=== PATIENT | female | born 1985 | race Caucasian/White ===

== ENCOUNTER 2018-01-27 17:06 | Emergency (ER) | payer SELFPAY ==
[2018-01-27] MEDS ORDERED: PROCHLORPERAZINE EDISYLATE INJ 10 MG/2 ML VIAL IV ONE (17:57)
[2018-01-27] MEDS ORDERED: DICYCLOMINE HCL INJ 20 MG/2 ML AMPULE IM ONE (17:57)
[2018-01-27] MEDS ORDERED: FAMOTIDINE INJ/PF 20 MG/2 ML SDV IV ONE (17:58)
--- NOTE | 2018-01-27 17:59 | ER Document Report ---
ED Medical Screen (RME) - General Chief Complaint: Abdominal Pain Stated Complaint: ABDOMINAL PAIN Time Seen by Provider: 01/27/18 17:57 TRAVEL OUTSIDE OF THE [place] IN LAST 30 DAYS: No - HPI Notes: 01/27/18 17:58 Patient coming in for upper abdominal pain nausea vomiting/diarrhea states nausea vomiting that occurred today the symptoms ongoing for the last 2 3 days mostly now having epigastric abdominal pain. - Related Data Allergies/Adverse Reactions: Penicillins Allergy (Verified 01/27/18 17:37) Past Medical History - Social History Frequency of alcohol use: None Drug Abuse: Marijuana - Past Medical History Cardiac Medical History: Reports: Hx Heart Attack - x2 in 2009, eating disorder Renal/ Medical History: Denies: Hx Peritoneal Dialysis Past Surgical History: Reports: Hx Gynecologic Surgery - preg. termination Review of Systems - Review of Systems Gastrointestinal: Abdominal pain Physical Exam - Vital signs Vitals: Temp Pulse Resp BP Pulse Ox 99.1 F 108 H 16 96/67 L 99 01/27/18 17:27 01/27/18 17:27 01/27/18 17:27 01/27/18 17:27 01/27/18 17:27 - Respiratory Respiratory status: No respiratory distress Chest status: Nontender Breath sounds: Normal Chest palpation: Normal Course - Vital Signs Vital signs: Temp Pulse Resp BP Pulse Ox 99.1 F 108 H 16 96/67 L 99 01/27/18 17:27 01/27/18 17:27 01/27/18 17:27 01/27/18 17:27 01/27/18 17:27
[2018-01-27] MEDS: NORMAL SALINE 1000 ML 1,000 ML IV PRN ×2 (18:10→21:00)
[2018-01-27 18:35] LABS: ABSOLUTE BASOPHILS # (AUTO) 0.1 10^3/uL (0.0-0.2); ABSOLUTE LYMPHOCYTES (AUTO) 4.5 10^3/uL (0.5-4.7); ABSOLUTE MONOCYTES (AUTO) 0.7 10^3/uL (0.1-1.4); ABSOLUTE NEUT (AUTO) 7.1 10^3/uL (1.7-8.2); BASOPHILS % (AUTO) 1.1 % (0-2); EOSINOPHILS % (AUTO) 0.2 % (0-6); HEMATOCRIT 45.6 % (36.0-47.0); HEMOGLOBIN 15.8 g/dL (12.0-15.5); LYMPHOCYTES % (AUTO) 35.9 % (13-45); MEAN CORPUSCULAR HEMOGLOBIN 32.4 pg (27.0-33.4); MEAN CORPUSCULAR HGB CONC 34.7 g/dL (32.0-36.0); MEAN CORPUSCULAR VOLUME 93 fl (80-97); MONOCYTES % (AUTO) 5.9 % (3-13); PLATELET COUNT 323 10^3/uL (150-450); RED BLOOD COUNT 4.88 10^6/uL (3.72-5.28); RED CELL DISTRIBUTION WIDTH 13.9 % (11.5-14.0); SEGMENTED NEUTROPHILS % (AUTO) 56.9 % (42-78); TOTAL CELLS COUNTED % (AUTO) 100 %; WHITE BLOOD COUNT 12.5 10^3/uL (4.0-10.5)
--- NOTE | 2018-01-27 18:59 | ER Document Report ---
ED General - General Mode of Arrival: Ambulatory Information source: Patient TRAVEL OUTSIDE OF THE [place] IN LAST 30 DAYS: No <ANIRUDH LACKEY - Last Filed: 01/27/18 21:32> <BRAVO MCKINLEY - Last Filed: 01/28/18 02:38> - General Chief Complaint: Abdominal Pain Stated Complaint: ABDOMINAL PAIN Time Seen by Provider: 01/27/18 17:57 Notes: 32 y.o. female presents to the ED with N/V/D and complains of upper abdominal pain. Pt reports that her abd pain began 2-3 days ago but her onset of nausea and vomiting was today and states that she only had one episode of diarrhea early this morning. Pt denies being around people of similar sx, or eating anything that could have caused her sx. She denies any chance of . ( ANIRUDH LACKEY) - Related Data Allergies/Adverse Reactions: Penicillins Allergy (Verified 01/27/18 17:37) Past Medical History - General Information source: Patient - Social History Smoking Status: Current Every Day Smoker Frequency of alcohol use: None Drug Abuse: Marijuana Family History: Arthritis, CAD, CVA, DM, Hyperlipidemia, Hypertension, Malignancy Patient has suicidal ideation: No Patient has homicidal ideation: No - Past Medical History Cardiac Medical History: Reports: Hx Heart Attack - x2 in 2009, eating disorder Renal/ Medical History: Denies: Hx Peritoneal Dialysis Past Surgical History: Reports: Hx Gynecologic Surgery - preg. termination <ANIRUDH LACKEY - Last Filed: 01/27/18 21:32> Review of Systems - Review of Systems Constitutional: No symptoms reported EENT: No symptoms reported Cardiovascular: No symptoms reported Respiratory: No symptoms reported Gastrointestinal: See HPI, Abdominal pain, Diarrhea, Nausea, Vomiting Genitourinary: No symptoms reported Female Genitourinary: No symptoms reported Musculoskeletal: No symptoms reported Skin: No symptoms reported Hematologic/Lymphatic: No symptoms reported Neurological/Psychological: No symptoms reported -: Yes All other systems reviewed and negative <ANIRUDH LACKEY - Last Filed: 01/27/18 21:32> Physical Exam <ANIRUDH LCAKEY - Last Filed: 01/27/18 21:32> <BRAVO MCKINLEY - Last Filed: 01/28/18 02:38> - Vital signs Vitals: Temp Pulse Resp BP Pulse Ox 99.1 F 108 H 16 96/67 L 99 01/27/18 17:27 01/27/18 17:27 01/27/18 17:27 01/27/18 17:27 01/27/18 17:27 - Notes Notes: Physical Exam: General: Alert, no acute distress. Appears uncomfortable. HEENT: Normocephalic. Atraumatic. PERRL. Extraocular movements intact. Dry mucous membranes. Neck: Supple. Non-tender. Respiratory: No respiratory distress. Clear and equal breath sounds bilaterally. Cardiovascular: Regular rate and rhythm. Abdominal: Epigastric and RUQ tenderness to palpation. No distension. No guarding or rebound. Normal Bowel Sounds. Back: Non-tender. No deformity or step off. Extremities: Moves all four extremities. Upper extremities: Normal inspection. Normal ROM. Lower extremities: Normal inspection. No edema. Normal ROM. Neurological: Normal cognition. AAOx3. Normal speech. Psychological: Normal affect. Normal Mood. Skin: Warm. Dry. Normal color. (ANIRUDH LACKEY) Course - Laboratory Result Diagrams: 01/27/18 18:03 01/27/18 18:03 <ANIRUDH LACKEY - Last Filed: 01/27/18 21:32> - Laboratory Result Diagrams: 01/27/18 18:03 01/27/18 18:03 - Diagnostic Test Radiology reviewed: Reports reviewed <BRAVO MCKINLEY - Last Filed: 01/28/18 02:38> - Re-evaluation Re-evalutation: 01/27/18 21:34 Updated patient. She denies any pain and would like something to eat and drink. (ANIRUDH LACKEY) Patient tolerating p.o. without difficulty. No further abdominal pain. Ultrasound within normal limits. Slightly elevated lipase which could be reactive from gastroenteritis or due to pancreatitis which the patient has never had before. She is to avoid drinking alcohol. She will be discharged home with medication for pain and nausea as needed. Return if any worsening or concerning symptoms. Patient is agreeable to this plan. Stable for discharge. (BRAVO MCKINLEY) - Vital Signs Vital signs: Temp Pulse Resp BP Pulse Ox 99.3 F 60 18 98/49 L 97 01/27/18 22:59 01/27/18 22:59 01/27/18 22:59 01/27/18 22:59 01/27/18 22:59 - Laboratory Laboratory results interpreted by me: 01/27/18 01/27/18 01/27/18 18:03 18:03 18:03 WBC 12.5 H Hgb 15.8 H Chloride 94 L Carbon Dioxide 33 H Calcium 11.0 H AST 47 H ALT 70 H Total Protein 8.7 H Albumin 5.3 H Lipase 558.8 H Urine Ketones 20 H Urine Urobilinogen 4.0 H Urine Ascorbic Acid 40 H Discharge <ANIRUDH LACKEY - Last Filed: 01/27/18 21:32> <BRAVO MCKINLEY - Last Filed: 01/28/18 02:38> - Discharge Clinical Impression: Abdominal pain Qualifiers: Abdominal location: epigastric Qualified Code(s): R10.13 - Epigastric pain Vomiting Qualifiers: Vomiting type: unspecified Vomiting Intractability: unspecified Nausea presence : with nausea Qualified Code(s): R11.2 - Nausea with vomiting, unspecified Condition: Stable Disposition: HOME, SELF-CARE Instructions: Abdominal Pain ([facility]), Gastritis ([facility]), Vomiting ([facility]) Prescriptions: Dicyclomine HCl [Bentyl 20 mg Tablet] 20 mg PO TIDP PRN #40 tablet PRN Reason: Metoclopramide HCl [Reglan 10 mg Tablet] 1 tab PO ASDIR PRN #25 tablet PRN Reason: Forms: Smoking Cessation Education Scribe Attestation: 01/28/18 02:38 I personally performed the services described in the documentation, reviewed and edited the documentation which was dictated to the scribe in my presence, and it accurately records my words and actions. (BRAVO MCKINLEY) Scribe Documentation - Scribe Written by Brnaden:: Branden Brunson 01/27/18 1909 acting as scribe for :: Steffi <ANIRUDH LACKEY - Last Filed: 01/27/18 21:32>
[2018-01-27 19:13] LABS: ALANINE AMINOTRANSFERASE 70 U/L (9-52); ALBUMIN 5.3 g/dL (3.5-5.0); ALKALINE PHOSPHATASE 50 U/L (38-126); ANION GAP 16 (5-19); ASPARTATE AMINO TRANSFERASE 47 U/L (14-36); BILIRUBIN,DIRECT 0.4 mg/dL (0.0-0.4); BILIRUBIN,TOTAL 0.6 mg/dL (0.2-1.3); BLOOD UREA NITROGEN 8 mg/dL (7-20); CARBON DIOXIDE 33 mmol/L (22-30); CHLORIDE 94 mmol/L (98-107); GLUCOSE 107 mg/dL (75-110); LIPASE 558.8 U/L (23-300); POTASSIUM 4.1 mmol/L (3.6-5.0); SODIUM 142.6 mmol/L (137-145); TOTAL PROTEIN 8.7 g/dL (6.3-8.2)
--- NOTE | 2018-01-27 21:09 | RADIOLOGY REPORT (SQ) ---
EXAM DESCRIPTION: U/S ABDOMEN LIMITED W/O DOP COMPLETED DATE/TIME: 01/27/2018 8:59 pm REASON FOR STUDY: Abd pain, N/V COMPARISON: None. TECHNIQUE: Dynamic and static grayscale images acquired of the abdomen and recorded on PACS. Additio nal selected color Doppler and spectral images recorded. LIMITATIONS: None. FINDINGS: PANCREAS: No masses. Visualized pancreatic duct normal caliber. LIVER: 15.4 cm. Normal echotexture. LIVER VASCULATURE: Normal directional flow of the main portal vein and hepatic veins. GALLBLADDER: No stones. Normal wall thickness. No pericholecystic fluid. ULTRASOUND-DETECTED CASTANEDA'S SIGN: Negative. INTRAHEPATIC DUCTS AND COMMON DUCT: CBD and intrahepatic ducts normal caliber. No filling defects. INFERIOR VENA CAVA: Patent. AORTA: No aneurysm. RIGHT KIDNEY: Normal size, 9.6 cm. Normal echogenicity. No solid or suspicious masses. No hydronephr osis. No calcifications. PERITONEAL AND RIGHT PLEURAL SPACE: No ascites or effusions. OTHER: No other significant findings. IMPRESSION: NORMAL RIGHT UPPER QUADRANT ULTRASOUND. TECHNICAL DOCUMENTATION: JOB ID: [id number] [employer]- All Rights Reserved Reading location - IP/workstation name: [email or web address]
[2018-01-27 21:26] LABS: APPEARANCE,URINE SLIGHTLY-CLOUDY; BILIRUBIN,URINE NEGATIVE (NEGATIVE); COLOR,URINE YELLOW; GLUCOSE, URINE NEGATIVE (NEGATIVE); KETONES,URINE 20 mg/dL (NEGATIVE); LEUKOCYTE ESTERASE,URINE NEGATIVE (NEGATIVE); NITRITE,URINE NEGATIVE (NEGATIVE); PROTEIN,URINE NEGATIVE (NEGATIVE)
[2018-01-27] MEDS ORDERED: ONDANSETRON ODT 4 MG TAB (6 TAB/ER DISP) PO PRN (22:36)
[2018-01-27 23:00] VITALS: BP 98/49
== END 2018-01-27 23:00 | disposition home or self-care (01) ==
LOC: ER 17:06
DX: R10.13 Epigastric pain (principal); R11.2 Nausea with vomiting, unspecified; R19.7 Diarrhea, unspecified; F17.200 Nicotine dependence, unspecified, uncomplicated; Z88.0 Allergy status to penicillin; I25.2 Old myocardial infarction
CPT/HCPCS: 99284; 96372; 96361; 96374; 96375; 36415; 83690; 84703; 85025; 80053; 81001; 76705; J0500; J0780; J7030; S0028

== ENCOUNTER 2018-12-03 08:50 | Emergency (ER) | payer SELFPAY ==
[2018-12-03 08:56] VITALS: BP 129/84
[2018-12-03] MEDS ORDERED: AZITHROMYCIN 1 GM SUSP PACKET PO ONE (10:40)
--- NOTE | 2018-12-03 10:46 | ER Document Report ---
HPI - HPI Time Seen by Provider: 12/03/18 10:14 Pain Level: Denies Context: Patient is a 33-year-old female who presents the emergency department because her partner was tested for STDs and was positive for chlamydia. She is here to be treated. She denies any abdominal pain or pelvic pain. She does state that there is a foul odor. Past medical history includes myocardial infarction when she was 26 years old. She is a current everyday smoker. She does smoke [facility]. - CONSTITUTIONAL Constitutional: DENIES: Fever, Chills - EENT EENT: DENIES: Sore Throat - NEURO Neurology: DENIES: Headache - CARDIOVASCULAR Cardiovascular: DENIES: Chest pain - RESPIRATORY Respiratory: DENIES: Trouble Breathing, Coughing - GASTROINTESTINAL Gastrointestinal: DENIES: Abdominal Pain, Nausea, Patient vomiting, Diarrhea - URINARY Urinary: DENIES: Dysuria, Urgency, Frequency - REPRODUCTIVE Reproductive: DENIES: : - MUSCULOSKELETAL Musculoskeletal: DENIES: Extremity pain - DERM Skin Color: Normal Skin Problems: None Past Medical History - Social History Smoking Status: Current Every Day Smoker Family History: Arthritis, CAD, CVA, DM, Hyperlipidemia, Hypertension, Malignancy - Past Medical History Cardiac Medical History: Reports: Hx Heart Attack - x2 in 2009, eating disorder Renal/ Medical History: Denies: Hx Peritoneal Dialysis Past Surgical History: Reports: Hx Gynecologic Surgery - preg. termination 10/29/13 Vertical Provider Document - CONSTITUTIONAL Agree With Documented VS: Yes Exam Limitations: No Limitations General Appearance: No Apparent Distress - INFECTION CONTROL TRAVEL OUTSIDE OF THE [place] IN LAST 30 DAYS: No - HEENT HEENT: Atraumatic, Normocephalic - NECK Neck: Normal Inspection - RESPIRATORY Respiratory: Breath Sounds Normal, No Respiratory Distress - CARDIOVASCULAR Cardiovascular: Regular Rate Pulses: Normal: Radial - MUSCULOSKELETAL/EXTREMETIES Musculoskeletal/Extremeties: FROM - NEURO Level of Consciousness: Awake, Alert, Appropriate Motor/Sensory: No Motor Deficit, No Sensory Deficit - DERM Integumentary: Warm, Dry, No Rash Course - Re-evaluation Re-evalutation: 12/03/18 10:49 She will be treated with azithromycin here in the emergency department. She will also be sent for wet mount to test for trichomoniasis. 12/03/18 11:03 Patient's wet prep shows 3+ bacteria, consistent with her exposure to chlamydia. She has been treated with azithromycin already in emergency department. There is no trichomoniasis noted. Her urine has showed up positive for chlamydia. Negative for gonorrhea. Verbal discharge instructions were given to the patient. They verbalized understanding. They are stable for discharge. - Vital Signs Vital signs: Temp Pulse Resp BP Pulse Ox 98.1 F 105 H 16 129/84 H 96 12/03/18 08:54 12/03/18 08:54 12/03/18 08:54 12/03/18 08:54 12/03/18 08:54 Discharge - Discharge Clinical Impression: Exposure to chlamydia Condition: Stable Disposition: HOME, SELF-CARE Additional Instructions: You were seen today in the emergency department after exposure to chlamydia. You were treated here in the emergency department for chlamydia. If you have worsening symptoms, abdominal pain, pelvic pain, develop a fever later than 100.4 F, or have any symptoms that are worrisome to you, please return to the emergency department.
[2018-12-03 11:01] LABS: CHLAM PCR DETECTED (NOT DETECT); GON PCR NOT DETECTED (NOT DETECT)
[2018-12-03 11:01] LABS: BACTERIA (WET MOUNT) 3+ BACTERIA SEEN; EPITHELIALS (WET MOUNT) 4+ EPITHELIALS SEEN; RBCS (WET MOUNT) FEW RBCS SEEN; T.VAGINALIS (WET MOUNT) NO TRICHOMONAS SEEN; WBCS (WET MOUNT) 2+ WBCS SEEN; YEAST (WET MOUNT) NO YEAST SEEN
== END 2018-12-03 11:05 | disposition home or self-care (01) ==
LOC: ER 08:50
DX: A74.9 Chlamydial infection, unspecified (principal); Z20.2 Contact with and (suspected) exposure to infections with a predominantly sexual mode of transmission; I25.2 Old myocardial infarction; F17.210 Nicotine dependence, cigarettes, uncomplicated; F12.90 Cannabis use, unspecified, uncomplicated
CPT/HCPCS: 99283; 87210; 81025; 87491; 87591; Q0144